=== PATIENT | female | born 1980 | race African-American/Black ===

== ENCOUNTER 2016-07-01 09:24 | Emergency (ER) | payer OTHER ==
[~2016-07-01] VITALS: Ht 157.5 cm; Wt 76.2 kg
--- NOTE | 2016-07-01 09:40 | ED HEADACHE COMPLAINT ---
History of Present Illness General Chief Complaint: Headache Stated Complaint: JUNG SINCE LAST PM Source: patient Exam Limitations: no limitations Vital Signs & Intake/Output Vital Signs & Intake/Output Vital Signs Date Time Temp Pulse Resp B/P Pulse O2 O2 Flow FiO2 Ox Delivery Rate 07/01 0946 Room Air Room Air 07/01 0946 140/90 07/01 0930 97.1 90 18 170/102 99 Room Air Allergies Coded Allergies: Sulfa (Sulfonamide Antibiotics) (HIVES 07/01/16) Reconcile Medications Butalb/Acetaminophen/Caffeine (Fioricet 50-300-40 MG Capsule) 50 MG-300 MG-40 MG CAPSULE 1 TAB PO TID PRN MIGRAIN Etonogestrel/Ethinyl Estradiol (Nuvaring Vaginal Ring) 0.12 MG -0.015 MG/24 HR VAG.RING 1 EACH VG Q30D BC (Reported) use for 3 weeks, skip for 1 week Ketorolac Tromethamine 10 MG TABLET 1 TAB PO TID PRN MIGRAINE Levothyroxine Sodium 50 MCG TABLET 1 TAB PO DAILY AC THYROID (Reported) Phentermine HCl 37.5 MG CAPSULE 1 CAP PO QAM UNKNOWN (Reported) Triage Note: 36 YEAR OLD FEMLAE TO ER , STATES THAT SHE HAS HISTORY OF MIGRAINES AND THAT SHE HAS BEEN HAVING R SIDE HEAD PAIN THAT WONT GO AWAY. STATES THAT IT FEELS DIFFERENT THAN HER MIGRAINES IN THE PAST Triage Nurses Notes Reviewed? yes Onset: Gradual Duration: constant Timing: recent history Quality/Severity: severe Severity Numbers: 6 No Modifying Factors: none : No Patient currently breastfeeds: No HPI: Patient is a 36 Y/O female with past medical history of migraines who presents emergency room with 2 day history of gradual onset of waxing and waning right- sided temporal migraine headache pressure like pain. Patient hasn't taken any medications for symptoms. Denies any fever chills thunderclap acute onset or worse headache of life symptom, denies any neck pain blurred vision tinnitus, photophobia nausea vomiting. Patient can tolerate by mouth. (RAMESH EDDY,JOANN) Past History Travel History Traveled to [place] past 21 day No Medical History Any Pertinent Medical History? see below for history Neurological: migraine EENT: allergies Cardiovascular: NONE Respiratory: asthma Gastrointestinal: NONE Hepatic: NONE Renal: NONE Musculoskeletal: NONE Psychiatric: NONE Endocrine: NONE Blood Disorders: NONE Cancer(s): NONE ERECTING ENGINEER/Reproductive: NONE Surgical History Surgical History: non-contributory Psychosocial History What is your primary language Czech Tobacco Use: Never used ETOH Use: denies use Illicit Drug Use: denies illicit drug use Family History Hx Contributory? No (JOANN MANCIA) Review of Systems Review of Systems Constitutional: Reports: no symptoms. Eyes: Reports: no symptoms. Ears, Nose, Throat, Mouth: Reports: no symptoms. Respiratory: Reports: no symptoms. Cardiovascular: Reports: no symptoms. Gastrointestinal/Abdominal: Reports: no symptoms. Genitourinary: Reports: no symptoms. Musculoskeletal: Reports: no symptoms. Skin: Reports: no symptoms. Neurological/Psychological: Reports: see HPI, headache. Hematologic/Endocrine: Reports: no symptoms. Endocrine: Reports: no symptoms. Immunologic/Allergic: Reports: no symptoms. All Other Systems: Reviewed and Negative (JOANN MANCIA) Physical Exam Physical Exam General Appearance: no apparent distress, alert, comfortable Cranial Nerves: normal hearing, normal speech, PERRL Comments: Well-developed well-nourished person in no acute distress HEENT: Normal EENT exam, extraocular motion intact, no nystagmus. Pupils equally round and reactive to light and accommodation. Nose is atraumatic. External auditory canal and Tympanic membranes clear. Pharynx normal. No swelling or edema. Neck: Supple, no lymphadenopathy, normal range of motion without pain or tenderness Back: Nontender, no CVA tenderness. Cardiovascular: Regular rate and rhythms no murmurs rubs or gallops, normal JVP Respiratory: Chest nontender. No respiratory distress.breath sounds clear to auscultation bilaterally Abdomen: Soft, nontender nondistended, no appreciable organomegaly. Normal bowel sounds. No ascites Extremity: No edema, no calf tenderness to palpation, normal and equal pulses. Neuro: Alert oriented x3, motor sensory normal, cranial nerves II through XII grossly intact. NEGATIVE RHOMBERG Skin: No appreciable rash on exposed skin, skin is warm and dry. Psych: Mood and affect is normal, memory and judgment is normal. Core Measures Severe Sepsis Present: No Septic Shock Present: No (JOANN MANCIA) Progress Differential Diagnosis: carotid dissection, cav sinus thromb, cluster JUNG, encephalitis, IC mass/tumor, intracranial Hem., meningitis, migraine JUNG, musculoskeletal pain, post LP headache, sinusitis, SSS thrombosis, subarach. Hem., tension JUNG, temporal arteritis, TMJ syndrome, viral cephalgia Plan of Care: Current Medications Sig/Shaunna Start time Last Medication Dose Stop Time Status Admin Ketorolac 30 MG ONCE ONE 07/01 1030 UNVr Tromethamine 07/01 1031 (Toradol) Patient currently is in no apparent distress and is able tolerate by mouth. Patient has no neurological deficits on exam. No suspicion at this time of SAH Patient was strongly advised to follow up and establish a neurologist if symptoms continue on Monday and she will comply. (JOANN MANCIA) Departure Departure Disposition: HOME OR SELF CARE Condition: Stable Clinical Impression Primary Impression: Headache Referrals: MATA MCLEAN,RIMMA CLARKE MD,JANELLE Galdamez (PCP/Family) Additional Instructions: As discussed begin drinking plenty of water for hydration. Begin the PRESCRIPTION OF ketorolac for pain and inflammation and headaches. Begin a prescription of Fioricet for breakthrough headache relief. Prescriptions are waiting at your pharmacy. If no better on Monday follow-up with an established neurologist Dr. Flores. If symptoms worsen return to emergency room. Departure Forms: Customer Survey General Discharge Information Prescriptions: Current Visit Scripts Ketorolac Tromethamine 1 TAB PO TID PRN MIGRAINE #15 TAB Butalb/Acetaminophen/Caffeine (Fioricet 50-300-40 MG Capsule) 1 TAB PO TID PRN MIGRAIN #15 TAB (JOANN MANCIA) PA/PLATE FORMER Co-Sign Statement Statement: ED Attending supervision documentation- [] I saw and evaluated the patient. I have also reviewed all the pertinent lab results and diagnostic results. I agree with the findings and the plan of care as documented in the PA's/PLATE FORMER's documentation. [X] I have reviewed the ED Record and agree with the PA's/PLATE FORMER's documentation. [] Additions or exceptions (if any) to the PAs/PLATE FORMER's note and plan are summarized below: [] (ABIEL MCLEAN,ADRIEL)
[2016-07-01 09:46] VITALS: BP 140/90
[2016-07-01] MEDS ORDERED: NUVARING VAGIN1 EACH VG (10:30)
[2016-07-01] MEDS ORDERED: LEVOTHYROXINE50 MCG PO (10:30)
[2016-07-01] MEDS ORDERED: PHENTERMINE H PO (10:31)
[2016-07-01] MEDS ORDERED: FIORICET 50-301 EACH PO (10:33)
[2016-07-01] MEDS ORDERED: KETOROLAC TROME10 M1 PO (10:33)
== END 2016-07-01 10:48 ==
LOC: ERH 09:24
DX: R51 Headache (principal)
CPT/HCPCS: 96372; J1885